=== PATIENT | male | born 1930 | race Caucasian/White ===

== ENCOUNTER 2017-01-11 16:47 | Emergency (ER) | payer MEDICARE ==
[~2017-01-11 16:47] MED LIST: ASPIRIN81 M1 PO; CENTRUM SILVER1 EAC3 PO; COLACE100 M1 PO; GAVILAX17 G2 PO
[2017-01-11 17:37] LABS: ALB/GLOB RATIO 1.2 (0.8-2.0); ALBUMIN 3.9 g/dl (3.5-5.0); ALCOHOL (ETOH) <10 mg/dl (<10); ALKALINE PHOSPHATASE 78 U/L (33-138); ALT/SGPT 24 U/L (12-78); BILIRUBIN,TOTAL 0.4 mg/dl (0.0-1.5); BLOOD UREA NITROGEN 28 mg/dl (6-24); CARBON DIOXIDE-VENOUS 25 mmol/L (22-32); CHLORIDE 110 mmol/l (96-110); CREATININE 1.41 mg/dl (0.60-1.30); GLUCOSE 93 mg/dL (70-110); SODIUM 145 mmol/L (135-145); eGFR VALUE FOR BLACK 52 mL/Min
[2017-01-11 17:47] LABS: ANION GAP 15 mmol/L (0-20); AST/SGOT 32 U/L (10-40); POTASSIUM 4.6 mmol/L (3.7-5.1)
[2017-01-11 17:49] LABS: BASO % 0.3 % (0-2); EOSINOPHIL ABSOLUTE COUNT 0.1 tho/cmm (0.0-0.7); HCT-HEMATOCRIT 32.8 % (36.0-53.5); HGB-HEMOGLOBIN 11.2 gm/dl (13.5-17.0); IMMATURE GRANULOCYTES ABSOLUTE 0.01 tho/cmm (0-0.03); IMMATURE GRANULOCYTES PERCENT 0.1 % (0-0.3); LYMPH % 9.4 % (20-45); LYMPH ABSOLUTE COUNT 0.7 tho/cmm (0.8-4.5); MCH (MEAN CORPUSCULAR HGB) 31.4 pg (28.0-32.0); MCHC MEAN CORPUSCULAR HGB CONC 34.1 % (32.0-36.0); MCV (MEAN CELL VOLUME) 91.9 fl (82.0-96.0); MEAN PLATELET VOLUME 10.1 cmc (9.4-12.4); MONO % 6.6 % (0-12); MONOCYTE ABSOLUTE COUNT 0.5 tho/cmm (0.0-1.2); NEUTROPHIL ABSOLUTE COUNT 6.5 tho/cmm (1.6-8.0); NEUTROPHIL-AUTOMATED 6.5 tho/cmm (1.6-8.0); NEUTROPHILS % 82.6 % (40-80); PLATELET COUNT 258 tho/cmm (150-450); RED BLOOD COUNT 3.57 mil/cmm (4.40-5.70); RED CELL DISTRIBUTION WIDTH 12.8 % (12.4-16.4); WHITE BLOOD COUNT 7.9 tho/cmm (4.0-10.0)
[2017-04-01] MEDS ORDERED: ASPIRIN81 M1 PO (10:03)
[2017-04-01] MEDS ORDERED: DOCUSATE SODIU100 M2 PO (10:03)
[2017-04-01] MEDS ORDERED: VITAMIN D35000 UNI3 PO (10:03)
[2017-04-01] MEDS ORDERED: CERTAVITE-ANTI1 EACH PO (10:03)
[2017-04-01] MEDS ORDERED: TYLENOL EXTRA500 M1 PO (10:04)
[2017-04-13] MEDS ORDERED: RISPERDAL0.5 M2 PO (10:21)
[2017-04-13] MEDS ORDERED: SINEMET 25-1001 EAC1 PO (10:22)
[2017-04-13] MEDS ORDERED: PROSCAR5 M1 (10:22)
[2017-04-13] MEDS ORDERED: PROSCAR5 M1 PO (10:23)
== END 2017-01-11 18:33 ==
LOC: EDMED 16:47
PROVIDERS: Emergency Medicine
DX: F03.90 Unspecified dementia, unspecified severity, without behavioral disturbance, psychotic disturbance, mood disturbance, and anxiety (principal)
CPT/HCPCS: G0480